=== PATIENT | female | born 1930 | race Caucasian/White ===

== ENCOUNTER 2018-09-09 16:47 | Emergency (ER) | payer MEDICARE, BC ==
[~2018-09-09] VITALS: Ht 160 cm; Wt 100.0 kg
[~2018-09-09 16:47] MED LIST: ASPI81TA52 PO; CARV-50 PO; DONE5TAB3 PO; FURO-150 PO; MELO-100 PO; PIOG45TA5 PO; POTA10TA19 PO; PRAV40TA65 PO; SYN0.025T PO
[2018-09-09] MEDS ORDERED: sulfamethoxazole/trimethoprim DS (800/160mg) tablet PO ONE (20:25)
[2018-09-09] MEDS ORDERED: LACT1CAP65 PO (20:27)
[2018-09-09] MEDS ORDERED: SULF1TAB48 PO (20:27)
[2018-09-09 20:49] VITALS: BP 178/75
== END 2018-09-09 21:11 | disposition home or self-care (01) ==
LOC: ER 16:48
DX: I97.89 Other postprocedural complications and disorders of the circulatory system, not elsewhere classified (principal); L03.313 Cellulitis of chest wall; F03.90 Unspecified dementia, unspecified severity, without behavioral disturbance, psychotic disturbance, mood disturbance, and anxiety; Z88.0 Allergy status to penicillin; Z79.82 Long term (current) use of aspirin; Z79.899 Other long term (current) drug therapy
CPT/HCPCS: 93005; 99284